=== PATIENT | male | born 1970 | race Caucasian/White ===

== ENCOUNTER → 2020-01-20 | Outpatient (CLI) | payer OTHER ==
[~2020-01-20] MED LIST: ACET325 PO; ACET500 PO; ALBU90OI INH; AMPDEX10CR PO; B Complete1 EACH PO; CEPH500 PO; DOCU100 PO; ENOX120I SC; ERYT500 PO; FLUC200 PO; FURO20 PO; GUAIFENESIN-DM S5 ML PO; HYDACE5 PO; IBUP800 PO; Iron Supplemen325 MG PO; METO25ER PO; MULVITMIND PO; RXCEPH500 PO; SACC250C PO; WARF5 PO
== END | disposition home or self-care (01) ==
LOC: LAB SHORT 18:51 → LAB EV 18:51
DX: L02.92 Furuncle, unspecified (principal)
CPT/HCPCS: 87070; 87075; 87077; 87186; 87205

== ENCOUNTER → 2021-02-15 | Outpatient (CLI) | payer OTHER ==
[~2021-02-15] MED LIST changes: +Amphetamine Sal20 MG PO; +Norco 5-325 Ta1 EACH PO
== END | disposition home or self-care (01) ==
LOC: LAB SHORT 19:51 → LAB 19:51
DX: L03.012 Cellulitis of left finger (principal)
CPT/HCPCS: 87070; 87075; 87077; 87186; 87205

== ENCOUNTER 2022-01-30 07:05 | Day surgery (SDC) | payer OTHER ==
[~2022-01-30] VITALS: Ht 172.7 cm; Wt 73.7 kg
[~2022-01-30 07:05] MED LIST changes: +AMPDEX15CR PO; +VITAMIN D31000 UNI1 PO
--- NOTE | 2022-01-30 07:30 | NUR ---
01/30/22 0729 Chloe Beebe PRIOR TO PROCEDUREHistory, Chart, Medications and Allergies reviewed before start of procedure.PATIENT DETERMINED TO BE ASA APPROPRIATE FOR PROPOFOL SEDATION PRIOR TO START OF PROCEDURE BY
--- NOTE | 2022-01-30 09:01 | NUR ---
Discharge instructions reviewed with patient. Patient verbalizes understanding. Copy given to patient to take home. Patient up to Ambulate independently. Gait steady. Patient States Post-Procedure ride home has been arranged. Discharged via wheelchair to private car for ride home.
== END 2022-01-30 22:43 | disposition home or self-care (01) ==
LOC: ORSCMMR 07:05 → ORD 08:00 → ORSCMMR 08:00
PROVIDERS: Internal Medicine Gastroenterology
PROC: 0DBM8ZX Excision of Descending Colon, Via Natural or Artificial Opening Endoscopic, Diagnostic (ICD-10-PCS; principal; 2022-01-30 08:00)
DX: Z12.11 Encounter for screening for malignant neoplasm of colon (principal); D12.4 Benign neoplasm of descending colon; F90.9 Attention-deficit hyperactivity disorder, unspecified type; K57.30 Diverticulosis of large intestine without perforation or abscess without bleeding; Z79.899 Other long term (current) drug therapy
CPT/HCPCS: 88305; J2704; J7120

== ENCOUNTER → 2022-08-06 | Outpatient (CLI) | payer OTHER | END | disposition home or self-care (01) | LOC: LAB SHORT 16:10 → LAB 16:10 | DX: F52.21 Male erectile disorder (principal) | CPT/HCPCS: 84403 ==